=== PATIENT | female | born 1950 | race Caucasian/White ===

== ENCOUNTER 2018-10-14 19:00 | Emergency (ER) | payer OTHER ==
--- OUTSIDE RECORDS SUMMARY | 2018-10-14 19:02 | XMS REPORT ---
:1950 [facility] Address [address] [place] [address] Care Team Providers Name Role Phone Unavailable Unavailable Unavailable Problems This patient has no known problems. Allergies, Adverse Reactions, Alerts This patient has no known allergies or adverse reactions. Medications This patient has no known medications.
[2018-10-14 20:44] LABS: Urine Bacteria <20 /HPF (<20); Urine Culture Reflex Order NOT NEEDED; Urine Mucus 1+ /HPF (NONE SEEN); Urine RBC <5 /HPF (NONE SEEN)
[2018-10-14 20:44] LABS: Urine Blood NEGATIVE (NEG); Urine Glucose NEGATIVE (NEG); Urine Protein NEGATIVE (NEG)
--- NOTE | 2018-10-14 20:58 | EDPHYS ---
Physician Documentation [facility] Name: Sujata Mortensen Age: 68 yrs Sex: Female : 1950 Arrival Date: 10/14/2018 Time: 19:06 Bed 30 Private MD: ED Physician Malick Avilez HPI: 10/14 20:17 This 68 yrs old Female presents to ER via Ambulatory with complaints of jr8 Urinary Problem. 20:17 The patient presents with urinary symptoms, frequency, hematuria, urgency. Onset: The jr8 symptoms/episode began/occurred acutely, 2 day(s) ago. Modifying factors: The symptoms are alleviated by nothing, the symptoms are aggravated by urinating. Associated signs and symptoms: The patient has no apparent associated signs or symptoms. Severity of symptoms: At their worst the symptoms were mild, in the emergency department the symptoms are unchanged. The patient has experienced similar episodes in the past, a few times. The patient has not recently seen a physician. Historical: - Allergies: 19:32 No Known Allergies; aj1 - Home Meds: 19:32 Lisinopril Oral [Active]; levothyroxine oral [Active]; Metformin Oral [Active]; aj1 - PMHx: 19:32 Diabetes - NIDDM; Hypertension; aj1 - PSHx: 19:32 Thyroidectomy; aj1 - Immunization history:: Flu vaccine is up to date. - Social history:: Smoking status: Patient/guardian denies using tobacco. - Ebola Screening: : Patient denies travel to an Ebola-affected area in the 21 days before illness onset. ROS: 20:17 Eyes: Negative for injury, pain, redness, and discharge, ENT: Negative for injury, jr8 pain, and discharge, Neck: Negative for injury, pain, and swelling, Cardiovascular: Negative for chest pain, palpitations, and edema, Respiratory: Negative for shortness of breath, cough, wheezing, and pleuritic chest pain, Abdomen/GI: Negative for abdominal pain, nausea, vomiting, diarrhea, and constipation, Back: Negative for injury and pain, MS/Extremity: Negative for injury and deformity, Skin: Negative for injury, rash, and discoloration, Neuro: Negative for headache, weakness, numbness, tingling, and seizure. 20:17 : Positive for urinary symptoms. Exam: 20:17 Eyes: Pupils equal round and reactive to light, extra-ocular motions intact. Lids and jr8 lashes normal. Conjunctiva and sclera are non-icteric and not injected. Cornea within normal limits. Periorbital areas with no swelling, redness, or edema. ENT: Nares patent. No nasal discharge, no septal abnormalities noted. Tympanic membranes are normal and external auditory canals are clear. Oropharynx with no redness, swelling, or masses, exudates, or evidence of obstruction, uvula midline. Mucous membranes moist. Neck: Trachea midline, no thyromegaly or masses palpated, and no cervical lymphadenopathy. Supple, full range of motion without nuchal rigidity, or vertebral point tenderness. No Meningismus. Cardiovascular: Regular rate and rhythm with a normal S1 and S2. No gallops, murmurs, or rubs. Normal PMI, no JVD. No pulse deficits. Respiratory: Lungs have equal breath sounds bilaterally, clear to auscultation and percussion. No rales, rhonchi or wheezes noted. No increased work of breathing, no retractions or nasal flaring. Abdomen/GI: Soft, non-tender, with normal bowel sounds. No distension or tympany. No guarding or rebound. No evidence of tenderness throughout. Back: No spinal tenderness. No costovertebral tenderness. Full range of motion. Skin: Warm, dry with normal turgor. Normal color with no rashes, no lesions, and no evidence of cellulitis. MS/ Extremity: Pulses equal, no cyanosis. Neurovascular intact. Full, normal range of motion. Neuro: Awake and alert, GCS 15, oriented to person, place, time, and situation. Cranial nerves II-XII grossly intact. Motor strength 5/5 in all extremities. Sensory grossly intact. Cerebellar exam normal. Normal gait. Vital Signs: 19:32 BP 139 / 74; Pulse 79; Resp 18; Temp 97.2; Pulse Ox 96% on R/A; Weight 106.59 kg (R); aj1 Height 5 ft. 9 in. (175.26 cm) (R); Pain 0/10; 21:10 BP 123 / 78; Pulse 80; Resp 18; Pulse Ox 100% on R/A; Pain 0/10; mg2 19:32 Body Mass Index 34.70 (106.59 kg, 175.26 cm) aj1 MDM: 19:52 Patient medically screened. 8 20:54 Data reviewed: vital signs, nurses notes, lab test result(s). Data interpreted: Pulse jr8 oximetry: on room air is 96 %. Interpretation: normal. Counseling: I had a detailed discussion with the patient and/or guardian regarding: the historical points, exam findings, and any diagnostic results supporting the discharge/admit diagnosis, the need for outpatient follow up, a family practitioner, to return to the emergency department if symptoms worsen or persist or if there are any questions or concerns that arise at home. ED course: Discussed with patient that there was no blood, WBC, or bacteria noted in her urine. Asked patient if she would like us to do blood work to see if anything else was going on since she had diarrhea about a week ago and continued nausea. Patient would rather f/u with PCP at this time and would come back if worse. Stated that she does have itching. Also offered to do external exam but would rather just try one time diflucan dose to see if that was the problem . 10/14 19:55 Order name: Urine Culture [facility] 10/14 19:55 Order name: Urine Microscopic Only; Complete Time: 20:47 [facility] 10/14 19:56 Order name: Urine Dipstick-Ancillary (obtain specimen); Complete Time: 20:31 [facility] 10/14 20:25 Order name: Urine Dipstick--Ancillary (enter results); Complete Time: 20:47 cm6 Administered Medications: 21:09 Drug: DiFLUcan 150 mg Route: PO; mg2 21:09 Follow up: Response: No adverse reaction; Medication administered at discharge. mg2 Disposition: 10/15 07:10 Co-signature as Attending Physician, Malick Avilez MD I agree with the assessment and tw4 plan of care. Disposition: 10/14/18 20:57 Discharged to Home. Impression: Dysuria, Vaginitis, vulvitis and vulvovaginitis in diseases classified elsewhere. - Condition is Stable. - Discharge Instructions: Dysuria, Vaginitis. - Medication Reconciliation Form, Thank You Letter, Antibiotic Education, Prescription Opioid Use form. - Follow up: Robbie Bone MD; When: 2 - 3 days; Reason: Recheck today's complaints, Continuance of care, Re-evaluation by your physician. - Problem is new. - Symptoms have improved. Signatures: Dispatcher [employer] EDChristiana Santos RN RN aj1 Sammy Lares PA PA jr8 Malick Avilez MD MD tw4 Tristian Del Rio, RN RN mg2 Corrections: (The following items were deleted from the chart) 10/14 21:11 20:57 10/14/2018 20:57 Discharged to Home. Impression: Dysuria; Vaginitis, vulvitis and mg2 vulvovaginitis in diseases classified elsewhere. Condition is Stable. Forms are Medication Reconciliation Form, Thank You Letter, Antibiotic Education, Prescription Opioid Use. Follow up: Robbie Bone; When: 2 - 3 days; Reason: Recheck today's complaints, Continuance of care, Re-evaluation by your physician. Problem is new. Symptoms have improved. jr8
--- NOTE | 2018-10-14 20:58 | ER ---
Nurse's Notes [facility] Name: Sujata Mortensen Age: 68 yrs Sex: Female : 1950 Arrival Date: 10/14/2018 Time: 19:06 Bed 30 Private MD: Diagnosis: Dysuria;Vaginitis, vulvitis and vulvovaginitis in diseases classified elsewhere Presentation: 10/14 19:29 Presenting complaint: Patient states: "I either have a UTI or a kidney infection, I aj1 think I have some blood in my urine" Reports burning with urination and itching to the vaginal area for the past 2 days. Denies vaginal discharge, denies fever, denies pain. Transition of care: patient was not received from another setting of care. Onset of symptoms was October 13, 2018. Risk Assessment: Do you want to hurt yourself or someone else? Patient reports no desire to harm self or others. Initial Sepsis Screen: Does the patient meet any 2 criteria? No. Patient's initial sepsis screen is negative. Does the patient have a suspected source of infection? No. Patient's initial sepsis screen is negative. Care prior to arrival: None. 19:29 Method Of Arrival: Ambulatory aj1 19:29 Acuity: CHRIS 4 aj1 Triage Assessment: 19:32 General: Appears in no apparent distress. comfortable, Behavior is calm, cooperative, aj1 appropriate for age. Pain: Denies pain. Neuro: Level of Consciousness is awake, alert, obeys commands, Oriented to person, place, time, situation. Cardiovascular: Patient's skin is warm and dry. Respiratory: Airway is patent Respiratory effort is even, unlabored, Respiratory pattern is regular, symmetrical. : Reports burning with urination, itchy to vaginal area. Derm: No signs and/or symptoms reported regarding the dermatologic system. Skin is pink, warm \\T\\ dry. normal. Musculoskeletal: No signs and/or symptoms reported regarding the musculoskeletal system. Circulation, motion, and sensation intact. Historical: - Allergies: 19:32 No Known Allergies; aj1 - Home Meds: 19:32 Lisinopril Oral [Active]; levothyroxine oral [Active]; Metformin Oral [Active]; aj1 - PMHx: 19:32 Diabetes - NIDDM; Hypertension; aj1 - PSHx: 19:32 Thyroidectomy; aj1 - Immunization history:: Flu vaccine is up to date. - Social history:: Smoking status: Patient/guardian denies using tobacco. - Ebola Screening: : Patient denies travel to an Ebola-affected area in the 21 days before illness onset. Screenin:28 Abuse screen: Denies threats or abuse. Denies injuries from another. Nutritional mg2 screening: No deficits noted. Tuberculosis screening: No symptoms or risk factors identified. Fall Risk None identified. Assessment: 20:29 General: Appears in no apparent distress. comfortable, Behavior is calm, cooperative. mg2 Pain: Denies pain. Neuro: Level of Consciousness is awake, alert, obeys commands, Oriented to person, place, time, situation. Cardiovascular: Capillary refill < 3 seconds Patient's skin is warm and dry. Respiratory: Airway is patent Respiratory effort is even, unlabored, Respiratory pattern is regular, symmetrical. GI: No signs and/or symptoms were reported involving the gastrointestinal system. : Reports vaginal itching, since 2 days hematuria. EENT: No signs and/or symptoms were reported regarding the EENT system. Derm: Skin is intact, is healthy with good turgor, Skin is pink, warm \\T\\ dry. normal. Musculoskeletal: Circulation, motion, and sensation intact. Capillary refill < 3 seconds. Vital Signs: 19:32 BP 139 / 74; Pulse 79; Resp 18; Temp 97.2; Pulse Ox 96% on R/A; Weight 106.59 kg (R); aj1 Height 5 ft. 9 in. (175.26 cm) (R); Pain 0/10; 21:10 BP 123 / 78; Pulse 80; Resp 18; Pulse Ox 100% on R/A; Pain 0/10; mg2 19:32 Body Mass Index 34.70 (106.59 kg, 175.26 cm) aj1 ED Course: 19:06 Patient arrived in ED. rg4 19:31 Triage completed. aj1 19:32 Arm band placed on Patient placed in waiting room, Patient notified of wait time. aj1 19:52 Sammy Lares PA is PHCP. jr8 19:52 Malick Avilez MD is Attending Physician. jr8 20:02 Tristian Del Rio RN is Primary Nurse. mg2 20:30 Patient has correct armband on for positive identification. Door closed. mg2 20:30 No provider procedures requiring assistance completed. Patient did not have IV access mg2 during this emergency room visit. 20:57 Robbie Bone MD is Referral Physician. jr8 Administered Medications: 21:09 Drug: DiFLUcan 150 mg Route: PO; mg2 21:09 Follow up: Response: No adverse reaction; Medication administered at discharge. mg2 Outcome: 20:57 Discharge ordered by MD. flores 21:10 Discharged to home ambulatory. mg2 21:10 Condition: good 21:10 Discharge instructions given to patient, Instructed on discharge instructions, follow up and referral plans. Demonstrated understanding of instructions, follow-up care. 21:11 Patient left the ED. mg2 Signatures: Christiana Chambers, RN RN aj1 Sammy Lares PA PA jr8 Sienna Pink4 Tristian Del Rio RN RN mg2
[2018-10-14] MEDS ORDERED: FLUCONAZOLE 100 MG TAB ONE (21:17)
[2018-10-14 21:46] VITALS: TEMP 97.2
[2018-10-14 21:47] VITALS: BP 123/78; O2SAT 100
== END 2018-10-14 21:11 | disposition home or self-care (01) ==
LOC: ER 19:00
DX: R30.0 Dysuria (principal); N77.1 Vaginitis, vulvitis and vulvovaginitis in diseases classified elsewhere; I10 Essential (primary) hypertension; E11.9 Type 2 diabetes mellitus without complications
CPT/HCPCS: 81003; 81015; 87086; 87088; 99283

== ENCOUNTER 2020-09-26 09:26 | Day surgery (SDC) | payer OTHER ==
[2020-09-23 11:11] LABS: Absolute Lymphocytes (CBC) 1.7 K/uL (0.7-4.9); Basophils % 0.8 % (0-1.3); Lymphocytes % 28.8 % (15.3-44.8); MPV 10.2 fL (7.6-11.3); RBC Red Blood Cell Count 4.74 M/uL (3.86-4.86)
[2020-09-23 11:21] LABS: BUN Blood Urea Nitrogen 16 mg/dL (7-18); Bicarbonate 31 mmol/L (21-32); Glucose Level 140 mg/dL (74-106); Potassium 4.1 mmol/L (3.5-5.1); Sodium Level 141 mmol/L (136-145)
[2020-09-23 11:21] LABS: Urine Appearance CLEAR; Urine Bilirubin NEGATIVE (NEG); Urine Blood NEGATIVE (NEG); Urine Color YELLOW; Urine Glucose NEGATIVE (NEG); Urine Protein NEGATIVE (NEG); Urine Specific Gravity 1.015 (1.005-1.030); Urine Urobilinogen 0.2 mg/dL (0.2-1.0)
[2020-09-23 11:23] LABS: Urine Microscopic Reflex ORDER UMIC
[2020-09-23 11:31] LABS: Urine Bacteria <20 /HPF (<20); Urine RBC NONE SEEN /HPF (NONE SEEN)
[2020-09-23 11:43] LABS: Protime INR 1.01
[2020-09-26] MEDS ORDERED: Ringers Lactate 1,000 ML IV ONE (10:11)
[2020-09-26] MEDS ORDERED: CEFAZOLIN/SWI 2gm 2 GM/20 ML SYR ONE (10:11)
[2020-09-26] MEDS ORDERED: CEFAZOLIN/SWI 1gm 1 GM/10 ML SYR ONE (10:11)
[2020-09-26] MEDS ORDERED: LIDOCAINE 2% MPF 5 ML VIAL ONE (10:14)
[2020-09-26] MEDS ORDERED: FENTANYL CITR 100 MCG/2 ML ONE (10:14)
[2020-09-26] MEDS ORDERED: propofoL 200 MG/20 ML VIAL IV ONE (10:14)
[2020-09-26] MEDS ORDERED: MIDAZOLAM HCL 2 MG/2 ML INJ ONE (10:14)
[2020-09-26] MEDS ORDERED: NS 0.9% VIAL 10 ML ONE (10:56)
[2020-09-26] MEDS ORDERED: NA CHLORIDE 0.9% 50 ML ONE (10:57)
[2020-09-26] MEDS ORDERED: CEFAZOLIN SODIUM 1 GM/VIAL ONE (10:57)
[2020-09-26] MEDS ORDERED: NA CHLORIDE 0.9% 1,000 ML ONE (10:57)
[2020-09-26] MEDS ORDERED: VASOPRESSIN 20 UNIT/ML VIAL ONE (10:58)
[2020-09-26] MEDS ORDERED: ACETAMINOPHEN 500 MG TAB ONE (11:17)
[2020-09-26] MEDS ORDERED: dexAMETHasone 10 MG/ML VIAL ONE (11:52)
[2020-09-26 15:12] VITALS: BP 139/65; TEMP 97.2; O2SAT 98
--- NOTE | 2020-09-26 15:46 | OP ---
Date of Procedure: 09/26/2020 Surgeon: Saige Velarde MD Preoperative Diagnoses: Stress urinary incontinence, also has overactive bladder. Postoperative Diagnoses: Stress urinary incontinence, also has overactive bladder and mixed incontin ence and stage II anterior wall prolapse. Procedures Performed: Midurethral sling (tension-free vaginal tape, transobturator approach), urethr oscopy. Anesthesia: General with LMA. Specimens: No specimens. Complications: No complications. Drains: Velarde catheter and vaginal packing. Findings: Prolapse of the urethrovesical junction and point BA was -1, AA -1, and point C at -5. After the sling was performed, cystoscopy was done and there was no evidence of any trauma to the angel dder, foreign body, or any tumors. Description Of Procedure: After informed consent was verified, the patient was taken back to OR, guerrero jose angel in supine fashion on the operating table. General anesthesia was given. She was placed in a niko evelia lithotomy position. Pelvic exam was performed and POP-Q was as above. Vulva, vagina, and perine um were prepped and draped in a sterile fashion. Velarde was placed to drain the bladder and bladder w as completely drained. Velarde clamped and retracted superiorly. The midurethral area was picked up w ith the help of 2 Allis clamps and the lateral aspects. Then, dilute vasopressin 20 units and 50 cc of normal saline and about 20 units were injected in the midline as well as on both sides with the tr acks were to be created. The patient was placed in high lithotomy and Trendelenburg position. The inferior pubic rami were identified after the space was mapped out. A 1 cm midurethral vaginal e pithelium incision was made. Epithelium and sub-epithelium and connective tissue were opened up and a track was created under the connective tissue going to the ipsilateral obturator space at a 40 degr ees angle to the horizontal and vertical planes hugging the inferior pubic ramus obturators space was entered, membrane perforated. Tips of the scissors were opened up to enlarge the track. The scisso rs were pulled back. Similar dissection was performed on opposite side and track was created without any problems. Then, the wing guide was placed. The spike was passed after it went through the obtu rator membrane. The wing guide was removed and hugging the inferior pubic ramus, the tip of the spik e was rotated to exit at a point above the level of the external urethral meatus about 2 cm lateral t o the groin fold. The plastic dilator was retrieved through the skin, then held with a Vesta clamp. The metal needle was removed. The dilator and the plastic sheath of the mesh were pulled through an d clamped with the help of a Vesta on the opposite side. Similar pass was taken, pulled out, and cla mped. Then, tensioning was done in the midline visualizing the suburethral area placing Metzenbaum s cissors here in the midline just leaving enough space between the urethra and the sling making it not too tight or too loose. Then, the sheaths were pulled out on both sides and once the mesh was ensur ed that it was in proper positioning, thorough irrigation and suction were performed. Vaginal epithe lium and sub-epithelium and connective tissue were closed in a continuous horizontal running fashion with 3-0 Vicryl suture. The incisions in the groins after trimming the mesh where it flushed with th e skin were closed with the help of Dermabond. Velarde was removed. Cystoscopy was performed with a 3 0-degree lens, normal saline. Excellent with visualization, the base of the bladder had the trigone with some squamous metaplasia. The dome of the bladder and lateral serrano were all well visualized, s light erythema on one of the serrano on the left lateral aspect, but this was likely from the tip of th e Velarde. No evidence of any graft or foreign body was seen. No evidence of any perforation. No blo od in the urine. Opposite side was also well inspected and as the scope was being pulled out gradually, the urethra wa s examined. The bladder was drained. Velarde was placed. Vaginal packing was placed and she was recovered from an esthesia and taken to PACU in stable condition. EBL was 75. The anterior wall appeared to be slight ly prolapsed despite the sling. It would have been optimal to have an anterior repair as well; howev er, this was not to the point where it was imperative or will increase the risk of obstruction to juan ding, so this was left alone. The patient was explained that this was a problem that would be addres sed later unless there is a risk for obstruction that I would not correct this. This will be explain ed again to the patient and reiterated. She was given a handout for her postop care. Her friend was notified of her findings. She was taken to PACU and then she will be discharged today after a voidi ng trial in 2 hours from surgery. If she passes, then she will go home without a catheter. If she f ails the trial, then she will go home with a catheter. PATRICIA/J LUIS Voice ID: [id number] Report ID: [id number]
== END 2020-09-26 16:05 | disposition home or self-care (01) ==
LOC: OR 09:26
PROVIDERS: ATTEND Obstetrics & Gynecology
PROC: 0TSD0ZZ Reposition Urethra, Open Approach (ICD-10-PCS; principal; 2020-09-26 10:30)
DX: N39.3 Stress incontinence (female) (male) (principal); N93.9 Abnormal uterine and vaginal bleeding, unspecified; N32.81 Overactive bladder; I10 Essential (primary) hypertension; E11.9 Type 2 diabetes mellitus without complications; Z20.822 Contact with and (suspected) exposure to COVID-19
CPT/HCPCS: 87088; 85025; 87086; 80048; 36415; 86900; 86850; 85610; 86901; 82947; 85730; 57288; U0002; J2704; J2250; J3010; J1100; J0690 ×3; J7120; J7030; 81003; 81015

== ENCOUNTER 2021-07-14 12:00 | Day surgery (SDC) | payer OTHER ==
[2021-07-14] MEDS ORDERED: NA CHLORIDE 0.9% 1,000 ML ONE (12:42)
[2021-07-14] MEDS ORDERED: MOXIFLOXACIN HCL 0.5% 3ML OPTH OPTH ONE (12:42)
[2021-07-14] MEDS ORDERED: LIDOCAINE HCL/PF 3.5% OPTH GEL OPTH SCH (13:00)
[2021-07-14] MEDS: CYCLOPENTOLATE 1% OPTH 2 ML ONE ×3 (13:10→13:20)
[2021-07-14] MEDS: PHENYLEPHRINE 10% OPTH 5ML LEFT EYE SCH ×3 (13:10→13:20)
[2021-07-14] MEDS ORDERED: NS 0.9% VIAL 0 ML ONE (13:11)
[2021-07-14] MEDS ORDERED: EPINEPHRINE/PF 1 MG/ML AMP ONE (13:11)
[2021-07-14] MEDS ORDERED: DUOVISC 1 KIT OPTH ONE (13:12)
[2021-07-14] MEDS ORDERED: BSS OPTHALMIC SOL 15 ML OPTH ONE ×2 (13:13→13:57)
[2021-07-14] MEDS ORDERED: TETRACAINE HCL 0.5% 4ML OPTH ONE (13:13)
[2021-07-14] MEDS ORDERED: TRIAMCINOLONE ACETONIDE 40 MG/ML OPTH ONE (13:15)
[2021-07-14] MEDS ORDERED: LIDOCAINE 1% MPF 2 ML AMPULE ONE (13:18)
[2021-07-14] MEDS ORDERED: TRYPAN BLUE 0.5 ML SYR OPTH ONE (13:18)
[2021-07-14] MEDS ORDERED: LIDOCAINE HCL/PF 3.5% OPTH GEL ONE (13:19)
[2021-07-14] MEDS ORDERED: propofoL 200 MG/20 ML VIAL IV ONE (13:40)
[2021-07-14] MEDS ORDERED: FENTANYL CITR 100 MCG/2 ML ONE (13:40)
[2021-07-14] MEDS ORDERED: MIDAZOLAM HCL 2 MG/2 ML INJ ONE (13:41)
[2021-07-14] MEDS ORDERED: ONDANSETRON 4 MG/2 ML VIAL ONE (13:41)
[2021-07-14] MEDS ORDERED: LIDOCAINE 1% MPF 5 ML VIAL ONE (13:41)
[2021-07-14] MEDS ORDERED: POVIDONE-IODINE 5% EYE DROPS ONE (13:57)
[2021-07-14 15:22] VITALS: BP 113/49; TEMP 97.2; O2SAT 97
--- NOTE | 2021-07-14 16:50 | OP ---
Date of Procedure: 07/14/2021 Surgeon: Yolis Broussard MD Anesthesiologist: Kaitlin Carmona CRNA and Gamaliel Tapia MD, for cataract surgery. 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 Operation Performed: Phacoemulsification with intraocular lens implant, left eye. Anesthesia: Topical anesthesia. Complications: None. Description Of Procedure: Akten was placed in the eye in day surgery In the operating room the patient was prepped and draped in the usual sterile fashion for ophthalmic surgery. A lid speculum was placed in the left eye. Two paracentesis sites were made superiorly and inferiorly in the limbal cornea. Viscoat was placed in the anterior chamber and a keratome was used to enter the anterior chamber. A 360 degree capsulotomy was performed with utrata forceps. The lens was hydrodissected with BSS and rotated freely. The lens was removed with a stop and chop technique. 0.91 phaco CDE was used to remove the lens. Residual cortex was removed with the irrigation and aspiration. Provisc was placed in the capsular bag. A ZCB00 +21.5 lens was placed in the capsular bag without complications. Irrigation and aspiration was used to remove residual viscoelastic. The paracentesis sites were hydrated with BSS. The wound and paracentesis sites were inspected and found to be watertight. Vigamox 0.07 cc was placed intracamerally at the end of the procedure. The eye was covered with a shield. The patient was returned to day surgery in good condition. Discharge Instructions: Ms. Mortensen is discharged to home in good condition. She is to follow up with Dr. Broussard in the morning. ARASELI/J LUIS Voice ID: [id number] Report ID: [id number] MARY
== END 2021-07-14 15:50 | disposition home or self-care (01) ==
LOC: OR 12:00
PROVIDERS: ATTEND Ophthalmology Retina Specialist
PROC: 08RK3JZ Replacement of Left Lens with Synthetic Substitute, Percutaneous Approach (ICD-10-PCS; principal; 2021-07-14 14:00)
DX: H26.8 Other specified cataract (principal); Z20.822 Contact with and (suspected) exposure to COVID-19
CPT/HCPCS: 82947; 66984; U0003; J0171; J2250; J3010; J7030; J2405; J2704

== ENCOUNTER 2022-07-13 11:05 | Day surgery (SDC) | payer OTHER ==
[2022-07-13] MEDS ORDERED: LIDOCAINE 1% MPF 5 ML VIAL ONE (11:21)
[2022-07-13] MEDS ORDERED: NS 0.9% VIAL 0 ML ONE (11:21)
[2022-07-13] MEDS ORDERED: TETRACAINE HCL 0.5% 4ML OPTH ONE (11:21)
[2022-07-13] MEDS ORDERED: BSS OPTHALMIC SOL 15 ML OPTH ONE (11:21)
[2022-07-13] MEDS ORDERED: POVIDONE-IODINE 5% EYE DROPS ONE (11:23)
[2022-07-13] MEDS ORDERED: LIDOCAINE HCL/PF 3.5% OPTH GEL ONE (11:27)
[2022-07-13] MEDS ORDERED: CYCLOPENTOLATE 1% OPTH 2 ML ONE (11:27)
[2022-07-13] MEDS ORDERED: NA CHLORIDE 0.9% 500 ML ONE (11:27)
[2022-07-13] MEDS ORDERED: PHENYLEPHRINE 10% OPTH 5ML ONE (11:27)
[2022-07-13] MEDS: BALANCED SALT IRRIG PLAIN 500 ML IRR ONE ×2 (12:25→13:13)
[2022-07-13] MEDS: EPINEPHRINE/PF 1 MG/ML AMP ONE ×2 (12:25→13:13)
[2022-07-13] MEDS: DUOVISC 1 KIT OPTH ONE ×2 (12:26→13:17)
[2022-07-13] MEDS: MOXIFLOXACIN HCL 10 DROPS/ML **OR USE OPTH ONE ×2 (12:26→13:17)
[2022-07-13] MEDS ORDERED: FENTANYL CITR 100 MCG/2 ML ONE (12:37)
[2022-07-13] MEDS ORDERED: MIDAZOLAM HCL 2 MG/2 ML INJ ONE (12:37)
[2022-07-13] MEDS ORDERED: ONDANSETRON 4 MG/2 ML VIAL ONE (12:37)
[2022-07-13] MEDS: LIDOCAINE 1% MPF 2 ML AMPULE ONE ×2 (13:13→13:20)
[2022-07-13 14:21] VITALS: BP 110/58; TEMP 97.6; O2SAT 100
--- NOTE | 2022-07-13 22:25 | OP ---
Date of Procedure: 07/13/2022 Surgeon: Yolis Broussard MD Preoperative Diagnosis: Combined form of cataract, right eye. Operation Performed: Phacoemulsification with intraocular lens implant, right eye. Anesthesia: Shar Rai CRNA and Jason Mendez MD. Per cataract surgery. Complications: None. Description Of Procedure: In day surgery, Akten gel was placed in the eye. In the operating room, Akten gel was irrigated out of the eye and the patient was prepped and draped in the usual sterile fashion for ophthalmic surgery. A lid speculum was placed in the right eye. Two paracentesis sites were made superiorly and inferiorly in the limbal cornea. Preservative free lidocaine then Viscoat were placed in the anterior chamber. A keratome was used to enter the anterior chamber. A 360 degree capsulotomy was performed with a utrata forceps. The lens was hydrodissected with BSS and rotated freely. The lens was removed with a chop technique. 4.55 phaco CDE was used to remove the lens. Residual cortex was removed with the irrigation and aspiration. Provisc was placed in the capsular bag. DCB00 +21.0 lens was placed in the capsular bag without complications. Irrigation and aspiration was used to remove residual viscoelastic. The paracentesis sites were hydrated with BSS. The wound and paracentesis sites were inspected and found to be watertight. Vigamox 0.07 cc was placed intracamerally at the end of the procedure. The eye was patched with a clear plastic shield. The patient was returned to day surgery in good condition. Comments: Discharge Instructions: Ms. Mortensen is discharged to home in good condition. She is to follow up with Dr. Broussard in the morning. ARASELI/J LUIS Voice ID: [id number] Report ID: [id number] MARY
== END 2022-07-13 14:15 | disposition home or self-care (01) ==
LOC: OR 11:05
PROVIDERS: ADMIT Ophthalmology Retina Specialist; ATTEND Ophthalmology Retina Specialist
PROC: 08RJ3JZ Replacement of Right Lens with Synthetic Substitute, Percutaneous Approach (ICD-10-PCS; principal; 2022-07-13 13:00)
DX: H25.811 Combined forms of age-related cataract, right eye (principal)
CPT/HCPCS: 82947; 66984; J0171; J2250; J3010; J7040; J2405; A4216; J2001

== ENCOUNTER 2022-10-21 06:17 | Day surgery (SDC) | payer OTHER ==
--- NOTE | 2022-10-19 15:47 | RAD REPORT ---
EXAM DESCRIPTION: RAD - Chest Pa And Lat (2 Views) - 10/19/2022 3:41 pm CLINICAL HISTORY: Pre op pending paulina/hernia repair Chest pain. TECHNIQUE: PA and lateral views of the chest were obtained. FINDINGS: The lungs are hyperexpanded compatible with COPD. The heart is upper limit of normal in si ze. No fracture or aggressive bony process. IMPRESSION: COPD without acute process identified. The USPSTF recommends annual screening for lung cancer with low-dose CT (LDCT) in adults aged 50 to 80 years who have a 20 pack-year smoking history and currently smoke or have quit within the past 15 years.
[2022-10-19 16:02] LABS: Albumin 3.4 g/dL (3.4-5.0); Bilirubin Direct 0.1 mg/dL (0-0.2); Bilirubin Total 0.4 mg/dL (0.2-1.0); Potassium 4.3 mEq/L (3.5-5.1); Protein, Total 6.9 g/dL (6.4-8.2)
[2022-10-19 16:15] LABS: Absolute Lymphocytes (CBC) 1.9 K/uL (0.7-4.9); Hematocrit 38.3 % (36.0-45.0); Lymphocytes % 27.3 % (15.3-44.8); MCV 85.8 fL (80-100); MPV 9.6 fL (7.6-11.3); RBC Red Blood Cell Count 4.47 M/uL (3.86-4.86)
--- NOTE | 2022-10-20 08:18 | EKG ---
Test Date: 2022-10-19 Test Time: 15:19:25 Creative Guru: JA MEASUREMENT RESULTS: Intervals: Rate: 72 IN: 172 QRSD: 90 QT: 422 QTc: 462 Porter: P: 66 IN: 172 QRS: -9 T: 28 INTERPRETIVE STATEMENTS: Normal sinus rhythm Low voltage QRS Borderline ECG No previous ECG available for comparison Electronically Signed On 10-20-22 08:17:15 CDT by Ankur Cheung
[2022-10-21] MEDS ORDERED: NA CHLORIDE 0.9% 1,000 ML ONE ×2 (06:50→09:30)
[2022-10-21] MEDS ORDERED: CEFOXITIN SODIUM 1 GM/VIAL ONE (06:50)
[2022-10-21] MEDS ORDERED: ROCURONIUM 50 MG/5 ML VIAL IV ONE (06:51)
[2022-10-21] MEDS ORDERED: FENTANYL CITR 100 MCG/2 ML ONE (06:51)
[2022-10-21] MEDS ORDERED: LIDOCAINE 2% MPF 5 ML VIAL ONE (06:51)
[2022-10-21] MEDS ORDERED: MIDAZOLAM HCL 2 MG/2 ML INJ ONE (06:51)
[2022-10-21] MEDS ORDERED: propofoL 200 MG/20 ML VIAL IV ONE (06:51)
[2022-10-21] MEDS ORDERED: ONDANSETRON 4 MG/2 ML VIAL ONE ×2 (06:52→09:23)
[2022-10-21] MEDS ORDERED: GLYCOPYRROLATE 0.2 MG/ML SYR ONE ×3 (08:17→08:54)
[2022-10-21] MEDS ORDERED: NEOSTIGMINE 1 MG/ML -10 ML VIAL ONE (09:00)
--- NOTE | 2022-10-21 09:01 | P.BOP ---
Preoperative diagnosis: recurrent RUQ pain, biliary dyskinesia, incarcerated umbilical hernia, morb Postoperative diagnosis: same, cholecystitis Primary procedure: 1. Laparoscopic cholecystectomy Secondary procedure: 2. open repair of incarcerated umbilical hernia Marble Cleaner: LOREN SPRINGER (PRE CERTIFICATION SPECIALIST) Estimated blood loss: <10cc Specimen: hernia sac, omentum, gallbladder Findings: hernia wiht large amount of incarcerated omemtum, acute cholecystitis Anesthesia: General Complications: None Drain(s): CLARE drain Transferred to: Recovery Room Condition: Good
[2022-10-21] MEDS ORDERED: MORPHINE 10 MG/ML VIAL ONE (09:05)
[2022-10-21] MEDS: MORPHINE 4 MG/ML SYR ONE ×2 (09:20→09:25)
[2022-10-21] MEDS: HYDROMORPHONE HCL 1 MG/ML INJ ONE ×4 (09:33→09:49)
[2022-10-21] MEDS ORDERED: HYDROCODONE/APAP 10/325 TAB ONE (10:21)
[2022-10-21 10:29] VITALS: BP 133/64; TEMP 97.7; O2SAT 18
[2022-10-21] MEDS ORDERED: dexAMETHasone 10 MG/ML VIAL ONE (11:10)
--- NOTE | 2022-11-05 08:52 | DS ---
Date of Discharge: 10/21/2022 Diagnoses: Recurrent right upper quadrant abdominal pain, biliary dyskinesia, incarcerated umbilical hernia, acute cholecystitis. Procedures: Laparoscopic cholecystectomy, open repair of incarcerated umbilical hernia. Disposition: Home. Activity: As tolerated. No heavy lifting. Plan: Follow up in my office in 1 week. Call for appointment at [phone]. The patient advised to c ome to our office sooner in the next 48 to 72 hours to remove the CLARE drain. The patient understood h ow to take care of it, she was instructed how to do so. MARIBEL/J LUIS Voice ID: [id number] Report ID: [id number]
--- NOTE | 2022-11-05 08:52 | OP ---
Date of Procedure: 11/04/2022 Surgeon: Zeferino Damon MD [place] Supervisor: REBECCA Dai. Preoperative Diagnoses: Recurrent right upper quadrant abdominal pain, biliary dyskinesia, incarcera landen umbilical hernia, morbid obesity, cholecystitis. Postoperative Diagnoses: Recurrent right upper quadrant abdominal pain, biliary dyskinesia, incarcer ated umbilical hernia, morbid obesity, cholecystitis. Procedures: 1.Laparoscopic cholecystectomy. 2.Open repair of incarcerated umbilical hernia. Estimated Blood Loss: Less than 10 mL. Specimen: Hernia sac, omentum and gallbladder. Findings: Hernia with large amount of incarcerated omentum present. The patient also had acute chol ecystitis. Anesthesia: General plus local. Drains: CLARE #10. Indication: This is the case of a female, who comes to us with above diagnosis. Fully explained the benefits, alternatives, and risks of laparoscopic possible open cholecystectomy and repair of umbili dionisio hernia, which include, but not limited to infection, bleeding, damage to adjacent structures, ane sthesia complication, recurrence of the hernia, choledocholithiasis, bile leak, pancreatitis, ND, and even . She also understands this may not relieve any symptoms. She might need more than one s urgical intervention. She understood, signed a consent. She was also explained the importance of lo sing some weight. Procedure In Detail: The patient was brought to the operating room, placed in supine position. Anes thesia was done without complication. Abdominal area was prepped and draped in the usual sterile fas hion. Local anesthesia was applied followed by sharp incision of the skin in the periumbilical regio n. When we went there, we noticed a large hernia present and large amount of omentum present that bailon ve to be ligated because it cannot be reduced. Using Vesta clamps, we proceeded to suture ligate elvira t part of the omentum that cannot be reduced. This hernia sac was also removed. The omentum was red uced back into the abdominal cavity after fully inspecting and making sure there was no bleeding. Th e fascial edges were cleaned and debrided for approximation. Vicryl #1 placed multiple times in a fi [id number]-awano fashion to approximate the hernia defects. We used that defects now to put a Mary tr ocar. Mary trocar was carefully introduced. Pneumoperitoneum was obtained. After that, we procee ded to place 3 more trocars, 5 mm each one of them in the epigastric area and right upper quadrant us ing same technique, which was consisted of local anesthetic, sharp incision of the skin and introduct ion of the trocars under direct vision. This allowed me to put a grasper in the fundus of the gallbl adder, another grasper in the infundibulum, retracting the gallbladder in the inferolateral fashion, exposing the triangle of Calot, and obtaining critical view. Cystic duct and cystic artery were chaya rly isolated, freed circumferentially and a connection between those and the gallbladder were clearly identified. I proceeded to ligate those by using at least 3 clips proximal, 1 clip distal, ligation in middle. Same was done with the cystic artery. No bile leak, no bleeding. The gallbladder was r emoved from the liver using the Bovie cauterizer and removed from the abdominal cavity using EndoCatc h through the umbilical incision. The area was inspected once again. No bile leak, no bleeding. At that moment, I proceeded to remove the trocars under direct vision, deflated pneumoperitoneum, and t hen proceeded to close the umbilical hernia in a [id number] fashion with #1 Vicryl multiple time s. The patient tolerated the procedure well. Subcutaneous tissue closed with 3-0 chromic and the sk in was approximated. Sponge count, instrument counts correct. The patient tolerated the procedure w ell. The patient was sent to recovery in stable condition. I have to mention due to the inflammatio n and cholecystitis that we felt in the right upper quadrant, a CLARE drain was left in place and will be removed in the office eventually. The CLARE drain is in the right upper quadrant. MARIBEL/J LUIS Voice ID: [id number] Report ID: [id number]
== END 2022-10-21 11:22 | disposition home or self-care (01) ==
LOC: OR 06:17
PROVIDERS: ATTEND Surgery
PROC: 0FT44ZZ Resection of Gallbladder, Percutaneous Endoscopic Approach (ICD-10-PCS; principal; 2022-10-21 07:30)
DX: K82.8 Other specified diseases of gallbladder (principal); K42.9 Umbilical hernia without obstruction or gangrene; K80.10 Calculus of gallbladder with chronic cholecystitis without obstruction
CPT/HCPCS: 93005; 85025; 80048; 36415; 82947; 80076; 88302; 88304; 83690; 71046; 47562; J2704; J2710; J2001; J2250; J3010; J1100; J1170 ×2; J0694; J2405 ×2; J7030 ×2